=== PATIENT | female | born 1960 | race Caucasian/White ===

== ENCOUNTER 2019-10-31 08:23 | Outpatient (CLI) | payer MEDICAID, SELFPAY ==
--- NOTE | ~2019-10-31 | MM_ITS ---
EXAMINATION: MM screening mammo unilat RT HISTORY: Screening right mammogram, history of left mastectomy TECHNIQUE: Craniocaudal and mediolateral oblique 3-D tomosynthesis images were obtained and synthetic 2-D images were generated. CAD analysis was submitted and interpreted. COMPARISON: 10/28/2018, 10/15/2017, 04/27/2015 BREAST PARENCHYMAL COMPOSITION: There are scattered areas of fibroglandular density. FINDINGS: There is no evidence of suspicious mass, calcification, or architectural distortion to sugg est malignancy. There has been no suspicious interval change. IMPRESSION: 1. No mammographic evidence of malignancy. 2. Recommend routine screening mammography in one year. BI-RADS Category 1: Negative Reviewed, dictated and finalized at location A. KEET RAISER
== END 2019-10-31 08:24 | disposition home or self-care (01) ==
PROVIDERS: PCP Family Medicine; Visit Provider Obstetrics & Gynecology
DX: Z12.31 Encounter for screening mammogram for malignant neoplasm of breast (principal)
CPT/HCPCS: 77067

== ENCOUNTER 2019-12-05 17:30 | Outpatient (RCR) | payer MEDICAID, SELFPAY ==
--- NOTE | 2019-11-07 08:59 | PTOPEVAL ---
PHYSICAL THERAPY EVALUATION AND PLAN OF CARE Thank you for referring this patient to [facility]. Vianey will be seen 2x/week for 4 weeks for PT. Please review, sign, date and return this plan of care OMER. I agree with and certify that the following plan of care is medically necessary. Referring Physician Date Attending Provider: Trever Miller MD Evaluation Evaluation Information Problem Diagnosis right shoulder pain; Onset 02/2019 Subjective Information Vianey is here today with Query Text:As Reported By Patient/ chronic right shoulder pain. Family Reports pain starting in 2018. She participated in PT in 05/2019 that states went well while she was particpiating, but since stopping therapy she notes that she started to lose motion again. She reprots she feels as though she has strength, but ROM is what is limited. Reaching back and behind are her most difficulty and painful motions. States she sleeps well generally. Since ending therapy a few months ago, she will occasionally try to stretch the arm up the wall, but otherwise the other exercises have become too difficult. Vianey did get an injection from the physician. She is taking naproxen as prescribed by physician. Right Shoulder(s) Reported Pain Level 0 Pain Frequency Chronic,Intermittent Greatest Pain Intensity 7 Pain Relief Interventions Used By None Patient Upper Extremity Range of Motion Scapular/ Shoulder Range of Motion Right Shoulder Flexion - Active 137 Shoulder Abduction - Active 151 Shoulder Medial Rotation - Active L4 Query Text:Reach Behind the Back Shoulder Lateral Rotation - Active 55 Shoulder Lateral Rotation - Active T2 Query Text:Reach Behind the Head Upper Extremity Muscle Strength Testing Scapular/Shoulder Right Shoulder Flexion Strength 4+ Good + Shoulder Extension Strength 5 Normal Shoulder Abduction Strength 5 Normal Shoulder Medial Rotation Strength 5 Normal Shoulder Lateral Rotation Strength 5 Normal Muscle Length Testing Muscle Length Testing Upper Trapezius Muscle Length (R) Mild Tightness Should
--- NOTE | 2019-12-05 18:11 | PTOPEVAL ---
PHYSICAL THERAPY PLAN OF CARE UPDATE AND PROGRESS REPORT Thank you for referring this patient to [facility]. I recommend continuing PT with Vianey 1x/week for 2-3weeks. Please review, sign, date and return this plan of care OMER. I agree with and certify that the following plan of care is medically necessary. Referring Physician Date Attending Provider: Trever Miller MD Re-evaluation Diagnosis right shoulder pain; Onset 02/2019 Subjective Information Vianey reports today that she Query Text:As Reported By Patient/ feels like there is little Family progress lately - that there is one spot that won't give. Self Report Pain Assessment Right Shoulder(s) Reported Pain Level 0 Interventions Used By Clinicians Exercise,Joint Mobilization Pain Score Pain Score 0: Self Report Upper Extremity Range of Motion Scapular/ Shoulder Range of Motion Right Shoulder Flexion - Active 158 Shoulder Abduction - Active 163 Shoulder Medial Rotation - Active T6 Query Text:Reach Behind the Back Shoulder Lateral Rotation - Active 72 Shoulder Lateral Rotation - Active T2 Query Text:Reach Behind the Head Scapular/Shoulder Range of Motion Muscle Length Restriction Limitations Scapular/Shoulder Range of Motion comparing right external Comments rotation behind head: left the upper thoracic spine rotatoes to allow increased motion whereas on the right side the upper thoracic does not rotate to allow for increased movement Upper Extremity Muscle Strength Testing Scapular/Shoulder Right Shoulder Flexion Strength 5 Normal Shoulder Extension Strength 5 Normal Shoulder Abduction Strength 5 Normal Shoulder Medial Rotation Strength 5 Normal Shoulder Lateral Rotation Strength 5 Normal Muscle Length Testing Upper Trapezius Muscle Length (R) Mild Tightness Levaetor Scapulae Muscle Length (R) Mild Tightness Shoulder Internal Rotators Muscle Length (R) Mild Tightness Clinical Summary Vianey has participated in 4 weeks of physical therapy for right adhesive capsulitis. She presents today with continued mild restriction of right shoulder external rotation when reaching behind her head and internal rotation when reaching behind her back and with discomfort at end range elevation. I recommend
--- NOTE | 2019-12-21 14:26 | PCPTNOTE ---
Patient cancelled her re-evaluation due to COVID-19 precautions. She will be discharged at this time. We will be happy to work with her again in the future if needed.
--- NOTE | 2019-12-21 14:27 | PCPTNOTE ---
PHYSICAL THERAPY DISCHARGE REPORT Attending Provider: Trever Miller MD Patient:Vianey Levy Date of :1960 Vianey has not returned for any further treatments since 12/05/2019 due to COVID-19 precautions. She will be discharged from therapy at this time. Her last re-assessment was sent on 12/05/2019. Thank you for referring this patient to [facility]. Please review, sign, date and return this discharge summary OMER. I have been updated about the patient's current status and I agree with discharge from the above service at this time. Referring Physician Date
== END 2019-12-22 14:46 | disposition home or self-care (01) ==
LOC: ANHPT 17:30
PROVIDERS: PCP Family Medicine; Visit Provider Orthopaedic Surgery
DX: M75.01 Adhesive capsulitis of right shoulder (principal)
CPT/HCPCS: 97110; 97140; 97161

== ENCOUNTER 2020-11-19 09:22 | Outpatient (CLI) | payer MEDICAID, SELFPAY ==
--- NOTE | ~2020-11-19 | MM_ITS ---
EXAMINATION: MM screening katrin RT w yobany HISTORY: Screening right mammogram, history of left mastectomy TECHNIQUE: Craniocaudal and mediolateral oblique 3-D tomosynthesis images were obtained and synthetic 2-D images were generated. CAD analysis was submitted and interpreted. COMPARISON: 10/31/2019, 10/28/2018, 10/15/2017 BREAST PARENCHYMAL COMPOSITION: There are scattered areas of fibroglandular density. FINDINGS: There is no evidence of suspicious mass, calcification, or architectural distortion to sugg est malignancy. There has been no suspicious interval change. IMPRESSION: 1. No mammographic evidence of malignancy. 2. Recommend routine screening mammography in one year. BI-RADS Category 1: Negative Reviewed, dictated and finalized at location A. [employer]
== END 2020-11-19 09:23 | disposition home or self-care (01) ==
LOC: ANHIMG 09:26
PROVIDERS: PCP Family Medicine; Visit Provider Obstetrics & Gynecology
DX: Z12.31 Encounter for screening mammogram for malignant neoplasm of breast (principal)
CPT/HCPCS: 77063; 77067

== ENCOUNTER 2021-08-08 03:37 | Observation (INO) | payer MEDICAID, SELFPAY ==
[2021-08-08] VITALS (50 sets, daily range): BP systolic 127–183; BP diastolic 53–91; PULSE 71–100; RESP 13–20; TEMP 35.9–37.1; O2SAT 88–100; BMI 27.3
--- NOTE | ~2021-08-08 | CT_ITS ---
EXAMINATION: CTA chest PE protocol DATE: 08/08/2021 05:59 INDICATION: Chest pain. TECHNIQUE: Computed tomography angiography (CTA) of the chest was performed with 100 mL Omnipaque-350 intravenous contrast timed to evaluate the pulmonary arteries. Coronal maximum intensity projection 3D-reconstructions were created by the technologist. Automated exposure control and iterative reconst ruction technique were employed. The dose-length product was 323.34 mGy-cm. COMPARISON: Chest 2 views 08/08/2021 FINDINGS: There is mild scarring at the lung apices. There is mild atelectasis bilaterally. No pleura l effusion. The heart size is normal. No pericardial effusion. There is no pulmonary embolus. There a re cysts in the liver measuring up to 5.5 cm. There are gallstones in the gallbladder, which is parti ally visualized. There are changes of left mastectomy. A left breast implant is noted. There is mild thoracic spondylosis. IMPRESSION: 1. No pulmonary embolus. Reviewed, dictated and finalized at location A. LITY COORDINATOR IMPRESSION: 1. No pulmonary embolus.
--- NOTE | ~2021-08-08 | XR_ITS ---
EXAMINATION: XR chest 2V DATE: 08/08/2021 04:10 INDICATION: Substernal chest pressure. Nausea and vomiting. TECHNIQUE: Frontal and lateral views of the chest were obtained. COMPARISON: Chest CT 08/08/2021 FINDINGS: There is mild scarring at the lung apices. No pleural effusion or pneumothorax. The heart s ize is normal. A left breast implant is noted. IMPRESSION: 1. Mild scarring at the lung apices. Reviewed, dictated and finalized at location A. R [employer]
--- NOTE | ~2021-08-08 | US_ITS ---
US abdomen limited INDICATION: Evaluate for cholecystitis. PROCEDURE: Realtime right upper abdominal ultrasound. COMPARISON: No prior studies for comparison. FINDINGS: The pancreas is normal without focal mass or pancreatic ductal dilation. Liver echotexture is increased, consistent with fatty infiltration. There are cysts of the liver, largest measuring up to 5.9 cm. There is normal directional flow in the portal vein. There is mild gallbladder wall thickening measuring 3.2 mm. No gallstones or pericholecystic fluid. Common bile duct measures 6 mm. No sonographic Olsen's sign. IMPRESSION: 1: Mild gallbladder wall thickening. This could indicate interstitial edema, chronic liver disease or chronic cholecystitis. 2: Hepatic steatosis with liver cysts. Reviewed, dictated and finalized at location A. RSAL PRINT INSPECTOR IMPRESSION: 1: Mild gallbladder wall thickening. This could indicate interstitial edema, ch ronic liver disease or chronic cholecystitis. 2: Hepatic steatosis with liver cysts.
--- NOTE | 2021-08-08 03:41 | ECG_ITS ---
Measurements Intervals [place] Rate: 92 P: 58 SC: 163 QRS: 44 QRSD: 98 T: 17 QT: 292 QTc: 361 Interpretive Statements SINUS RHYTHM POSSIBLE LEFT ATRIAL ENLARGEMENT INCOMPLETE RIGHT BUNDLE BRANCH BLOCK BORDERLINE T WAVE ABNORMALITY- INFERIOR LEADS BORDERLINE ECG Electronically Signed On 08-08-2021 5:54:57 KILN HAND by Luigi Mcmullen D.O.
--- NOTE | 2021-08-08 03:59 | PC.NURSE ---
Pt to XY at this time
[2021-08-08] MEDS: ASPIRIN 81 MG CHEWABLE TABLET 324 MG PO (04:03)
[2021-08-08] MEDS: SODIUM CHLORIDE 0.9% IV 1,000 ML 999 ML IV CONT (04:04)
[2021-08-08] MEDS: NITROGLYCERIN SL 0.4 MG TABLET SUBLINGUAL (04:05)
--- NOTE | 2021-08-08 04:06 | PC.NURSE ---
1st dose SL Nitro given. Pt rates chest pain/pressure 9/10. BP 172/90
--- NOTE | 2021-08-08 04:10 | ED.GENADULT ---
HPI - General Adult General Chief complaint: Chest Pain <Fredrick Elliott MD - Last Filed: 08/08/21 06:53> Stated complaint: chest pain radiating to back <Fredrick Elliott MD - Last Filed: 08/08/21 06:53> Time Seen by Provider: 08/08/21 03:46 <Fredrick Elliott MD - Last Filed: 08/08/21 06:53> History of Present Illness HPI narrative: Patient 61-year-old female presents the emergency department with chief complaint of chest pain. Patient reports that for some time she has been having intermittent episodes of discomfort in the lower chest. Patient reports the pain radiates to her back reports its not improved by anything and reports that normally it spontaneously resolved patient states normally has lasted just a few minutes to last up to a few hours patient states this evening started around 9 PM and is pretty well constant since then patient reports she is not followed up with her provider about this has not had a stress test patient reports her only past medical history significant for breast cancer which she is on oral agents for her at this time <Fredrick Elliott MD - Last Filed: 08/08/21 06:53> Related Data Home medications: Home Medications Medication Instructions Recorded Confirmed tamoxifen 10 mg tablet 10 mg PO BID 08/31/19 calcium carbonate 600 mg calcium 600 mg PO DAILY 10/26/19 (1,500 mg) tablet cholecalciferol (vitamin D3) 75 3,000 unit PO DAILY 10/26/19 mcg (3,000 unit) tablet <Fredrick Elliott MD - Last Filed: 08/08/21 06:53> Allergies/adverse reactions: Allergies Allergy/AdvReac Type Severity Reaction Status Date / Time azithromycin Allergy Unknown Skin Verified 08/08/21 03:53 Reaction ciprofloxacin Allergy Unknown unknown Verified 08/08/21 03:53 clindamycin Allergy Unknown unknown Verified 08/08/21 03:53 codeine Allergy Unknown Skin Verified 08/08/21 03:53 Reaction penicillin G Allergy Unknown swelling Verified 08/08/21 03:53 Penicillins Allergy Unknown swelling- Verified 08/08/21 03:53 face-hands Sulfa (Sulfonamide Allergy Unknown Skin Verified 08/08/21 03:53 Antibiotics) Reaction sulfamethizole Allergy Unknown Skin Verified 08/08/21 03:53 Reaction sulfamethoxazole Allergy Unknown Unknown Verified 08/08/21 03:53 [From Bactrim] sumatriptan Allergy Unknown Skin Verified 08/08/21 03:53 Reaction trimethoprim Allergy Unknown RASH Verified 10/26/19 08:30 vancomycin Allergy Unknown Skin Verified 10/26/19 08:30 Reaction VANCOMYCIN HCL Allergy Severe RASH AND Uncoded 08/13/18 11:41 RED FACE <Fredrick Elliott MD - Last Filed: 08/08/21 06:53> Review of Systems Review of Systems: A 10 system review of systems was completed on the patient and is negative except for what is stated in the HPI. Nursing and ancillary documentation was reviewed. <Fredrick Elliott MD - Last Filed: 08/08/21 06:53> [facility] Past Medical History Medical History: Medical History Breast cancer Osteopenia <Fredrick Elliott MD - Last Filed: 08/08/21 06:53> Surgical History Surgical History: Surgical History History of hysterectomy 07/2018 Dr. 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
[2021-08-08 04:13] LABS: Basophils Absolute Auto 0.1 K/mm3 (0.0-0.1); Basophils Percent Auto 0.4 % (0.2-1.2); Hematocrit 38.7 % (37.0-47.0); Hemoglobin 12.7 g/dL (12.0-15.0); Immature Granulocyte Absolute 0.07 K/mm3 (0.00-0.031); Immature Granulocyte Percent A 0.5 % (0-0.5); Lymphocytes Percent Auto 10.4 % (18.3-44.2); Mean Corpuscular HGB Conc 32.8 g/dl (32-36); Mean Corpuscular Volume 94.4 fl (80-100); Mean Platelet Volume 9.6 fl (7.4-10.4); Monocytes Absolute Auto 0.6 K/mm3 (0.1-0.6); Monocytes Percent Auto 4.4 % (2.6-8.5); Neutrophils Absolute Auto 11.3 K/mm3 (1.3-6.7); Neutrophils Percent Auto 84.3 % (45.5-73.1); Platelet Count Result 226 k/mm3 (150-375); White Blood Count 13.4 K/mm3 (4.5-10.0)
--- NOTE | 2021-08-08 04:13 | PC.NURSE ---
2nd dose of SL Nitro. Pt rates chest pain/pressure /. BP 146/82.
--- NOTE | 2021-08-08 04:18 | PC.NURSE ---
3rd dose SL Nitro given. Pt rates pain 06/07. BP 145/87.
[2021-08-08 04:25] LABS: Alanine Aminotransferase 21 U/L (4-35); Albumin Level 4.5 g/dL (3.5-5.1); Alkaline Phosphatase 54 U/L (38-126); Anion Gap 10 mmol/L (8-16); Aspartate Amino Transferase 29 U/L (14-36); Bilirubin,Total 0.3 mg/dL (0.2-1.3); Blood Urea Nitrogen 17 mg/dL (7-17); Calcium 9.6 mg/dL (8.4-10.2); Carbon Dioxide 26 mmol/L (22-30); Chloride 105 mmol/L (98-107); Estimated CRCL calculation 59 ml/min; Estimated Glomerular Filt Rate > 60; Glucose 139 mg/dL (65-110); Lipase 149 U/L (23-300); Potassium 3.9 mmol/L (3.4-5.0); Sodium 141 mmol/L (137-145)
[2021-08-08] MEDS: MORPHINE SULFATE (*CRX) 4 MG/ML INJ IV PUSH ×3 (04:31→17:06)
[2021-08-08 04:37] LABS: Troponin I < 0.012 ng/mL (0.000-0.034)
[2021-08-08 04:41] LABS: INR 0.9; Prothrombin Time 12.1 Seconds (11.1-14.7)
[2021-08-08 04:55] LABS: D Dimer 0.49 ug/mL (<0.48)
--- NOTE | 2021-08-08 05:49 | PC.NURSE ---
Pt to CT via stretcher at this time.
[2021-08-08] MEDS: BELLADONNA ALK/PHENOB ELIX 10 ML, MAG HYDROX/ALUMINUM HYD/SIMETH 30 ML, LIDOCAINE HCL 2... PO (06:10)
[2021-08-08 07:59] LABS: Troponin I < 0.012 ng/mL (0.000-0.034)
[2021-08-08] MEDS: DICYCLOMINE HCL 10 MG CAPSULE 20 MG PO (09:33)
[2021-08-08] MEDS: LORazepam INJ (*CRX) 2 MG/ML VIAL 1 MG IV PUSH (09:34)
[2021-08-08 10:22] LABS: Troponin I < 0.012 ng/mL (0.000-0.034)
--- NOTE | 2021-08-08 11:25 | PC.NURSE ---
pt to ultrasound via stretcher. report to imu
--- NOTE | 2021-08-08 11:32 | PC.NURSE ---
This patient, Vianey Levy, was admitted to IMU Room 209-. Patient/family oriented to hospital policies and general routines including ID bracelet, bed and alarms, visiting hours, pain management, procedures, bathroom and other care routines, personal items, smoking policy, room service/diet, and visiting hours. Information on how to activate the Rapid Response Team has been discussed. Patient/Family are encouraged to report perceived risks to care and to ask questions if they do not understand what they are told or what they should do.
[2021-08-08] MEDS: SODIUM CHLORIDE 0.9% IV 1,000 ML 125 ML IV CONT (12:00)
--- NOTE | 2021-08-08 13:00 | PM.IMHP ---
H&P: HPI History of Present Illness Date/Time: 08/08/21 13:00 Chief Complaint: Chest pain. Narrative: This is a 61-year-old female with history of breast cancer who presented to the emergency department in the dry plasterer hours for evaluation of chest pain. Last evening at around 21:00 she was hungry for a snack and she apparently had some chips and orange juice. About an hour thereafter she developed pain in the low chest/epigastric region that she describes as ?someone is pushing me with their fist.? The pain radiates through to the back and is associated with nausea and several episodes of emesis. She felt perhaps a bit short of breath with that as well however it seems as though taking in a deep breath seemed to make the discomfort worse. The patient has had similar episodes in the past dating back to at least December 2020 if not longer, and she reports that they typically occur during the middle of the night and resolve without intervention within a few hours. She had 2 such episodes in May. She does not necessarily notice a correlation with regards to food. Chest x-ray and chest CTA done on arrival to the emergency department were both unremarkable. A subsequent right upper quadrant ultrasound demonstrated mild gallbladder wall thickening which could indicate interstitial edema, chronic liver disease, or chronic cholecystitis as well as hepatic steatosis with liver cysts. She denies personal and family history of coronary artery disease. She has not had exertional chest pain or shortness of breath. No known history of gallbladder disease. No history of pancreatitis, GERD, or peptic ulcers. Review of Systems Review of Systems: Twelve systems were reviewed. No fever, chills, or sweats. No recent cold or flu symptoms. She denies exertional chest pain, pleuritic pain, and shortness of breath. No orthopnea, PND, or lower extremity edema. No diarrhea or constipation. She had a normal colonoscopy done about 9 years ago and is due for a routine colonoscopy next year. She has not noticed any blood or mucus in the stool. Except as documented, all other systems were reviewed and are negative. [facility] Past Medical History Medical History (Updated 08/08/21 @ 14:21 by Judith Skinner PA-C) Cancer of left breast Status post mastectomy Osteopenia Surgical History Surgical History (Updated 08/08/21 @ 13:13 by Judith Skinner PA-C) History of hysterectomy (07/2018) History of left mastectomy (04/2011) Status post LASIK surgery (2018) Family History Family History Sibling Diabetes mellitus Hypertension Other Asthma Social History Social History (Updated 08/08/21 @ 14:43 by Judith Skinner PA-C) Social History: Surrogate decision maker: Quinn Levy, spouse. Code status: Full code. Smoking status: Never smoker Second hand tobacco smoke exposure: Yes Alcohol intake: never Substance use: never Substance use type: does not use Additional living arrangements comments: The patient lives in [place] with her . 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 Spiritual care concerns: Yes (Islam) Agree to blood products: No Meds Home Medications and Allergies Home Medications Medication Instructions Recorded Confirmed Type calcium carbonate 600 mg calcium 600 mg PO DAILY 10/26/19 08/08/21 History (1,500 mg) tablet cholecalciferol (vitamin D3) 50 mcg PO DAILY 08/08/21 08/08/21 History [Vitamin D3] Allergies Allergy/AdvReac Type Severity Reaction Status Date / Time azithromycin Allergy Unknown Skin Verified 08/08/21 03:53 Reaction ciprofloxacin Allergy Unknown Rash Verified 08/08/21 11:46 clindamycin Allergy Unknown Rash Verified 08/08/21 11:46 codeine Allergy Unknown Skin Verified 08/08/21 03:53 Reaction penicillin G Allergy Unknown swelling Verif
[2021-08-08 15:37] LABS: Troponin I < 0.012 ng/mL (0.000-0.034)
--- NOTE | 2021-08-08 15:53 | PM.CNGS ---
Assessment and Plan Assessment and plan (1) Cholecystitis: Code(s): K81.9 - Cholecystitis, unspecified Status: Acute Assessment and Plan: CTA and ultrasound reviewed and discussed with the patient in detail. She has evidence of cholecystitis and cholelithiasis. This appears to be the likely cause for her epigastric/substernal chest pain. Her white blood cell count is elevated and she is continuing to have epigastric abdominal pain. I discussed the disease process and treatment options at this point. We discussed trying to treat this conservatively and making lifestyle changes versus proceeding with surgery. I briefly discussed the procedure, risks, benefits, expected outcomes, and expected recovery with the patient. All questions were answered. She agrees to proceed with surgery. We will plan on adding her onto the surgery schedule tomorrow for a laparoscopic cholecystectomy, possible open, by Dr. Burr under general anesthesia. Will allow clear liquids tonight and make her NPO after midnight. Antibiotics are limited given her multiple allergies. Will plan on giving pre-operative antibiotics tomorrow before surgery. Thank you for allowing us to see the patient in consultation and we will continue to follow along with you. (2) Epigastric pain: Code(s): R10.13 - Epigastric pain Status: Acute (3) Patient is Anabaptism: Code(s): Z78.9 - Other specified health status Status: Acute Assessment and Plan: I verified with the patient that she is Anabaptism and refuses blood products. Additional Plan I have discussed the patient's case and plan of care with Dr. Burr. History of Present Illness Consult details Consult date: 08/08/21 Reason for consult: other (Epigastric pain with imaging findings of cholelithiasis and possible cholecystitis) Requesting physician: Judith Skinner PA-C Narrative: This is a 61-year-old female with a history of breast cancer in 2010, who presented to the ER for evaluation of chest pain. She reports having a few episodes in the past, about 3-4, that were similar to this episode, but more mild in nature. The initial episode was in December of 2020. The onset of pain with each episode has been during the night, and was accompanied by dry heaving. She cannot recall if there was any association with food or eating. She reports last night she had eaten chilli with cheese for dinner and felt that she started having some discomfort in her mid lower chest/epigastric area around 9:30 pm. She then ate some chips and drank orange juice. About an hour after, she began having worsening pain. The pain was more severe than previous episodes and was radiating to her mid back. She developed nausea and had two episodes of vomiting. Due to persistent pain, she decided to come to the ER for further evaluation. Labs in the ER showed a WBC count of 13,400, normal LFTs, and normal troponin x 3. Barely elevated D-dimer. Chest CTA was negative for pulmonary embolism, but does mention partial visualization of the gallbladder with cholelithiasis noted. Chest x-ray showed mild scarring at the lung apices but no acute cardiopulmonary process. RUQ ultrasound was then ordered and showed mild gallbladder wall thickening without visible cholelithiasis or other findings consistent with cholecystitis. Also noted was hepatic steatosis and liver cysts. She has been admitted to the Hospitalist and is currently NPO. She has had nitroglycerin in the ER without relief of her pain. She has had Morphine, which she felt helped her pain. She reports that the pain is starting to worsen again slowly. She is currently rating her pain as a 7/10 and a pressure type of pain. Our service has been consulted for the abnormalities of the gallbladder on imaging with epigastric pain. She is now seen on the medical floor. Her nausea has improved. Her bowels have been moving normally for her with her last BM yesterday. No other c
--- NOTE | 2021-08-08 16:06 | PM.CNCAR ---
Assessment and Plan Assessment and plan (1) Atypical chest pain: Code(s): R07.89 - Other chest pain Status: Acute Assessment and Plan: Patient has had more than 12 hours of continuous chest discomfort with negative troponins and a normal EKG, so this does not appear to be an acute cardiac ischemic problem/ACS syndrome. No evidence of aortic problems, PE or pericarditis. She does have some epigastric tenderness I suspect this is GI, probably related to her gallstones. My impression is this is noncardiac chest pain and no further cardiac evaluation is needed. Thank you for requesting this consultation. We will sign off but please call if we can be of further assistance. History of Present Illness History of Present Illness Consult date/time: 08/08/21 16:06 Requesting physician: Lashon Samuels MD Consult reason: chest pain Reason For Visit: chest pain Narrative: Vianey Levy is a 61-year-old female whom we are asked to see at the request of Dr. Samuels and the hospitalist for advice and opinion regarding her chest discomfort in consultation. Ms. Levy has had episodes of chest discomfort over the past year at rest, which would solve after few minutes. Last night she started having some chest discomfort around 10:00 p.m.. which became more intense in she asked her to bring her to the emergency room. She describes this as a pressure in the lower sternal area. There is no associated nausea vomiting, shortness of breath or diaphoresis. No radiation. It is nonpleuritic and nonpositional. It did not respond to nitroglycerin but improved a little with morphine. She still having some discomfort. She is also being evaluated for her gallstones. There is no history of hypertension, diabetes, hyperlipidemia, smoking or any family history of heart disease. She can exert with no particular problems. Review of Systems Constitutional: Constitutional: Reports fatigue and Denies weakness Eyes: Eyes: Reports no additional eye complaints ENT: Denies epistaxis Cardiovascular: Cardiovascular: Reports chest pain, Denies pedal edema, Denies leg edema, Denies lightheadedness and Denies palpitations Respiratory: Respiratory: Denies dyspnea and Denies dyspnea on exertion Gastrointestinal: Gastrointestinal: Reports abdominal pain Genitourinary: Genitourinary: Denies hematuria Musculoskeletal: Musculoskeletal: Reports no additional musculoskeletal complaints Integumentary/Breasts: Skin/Breast: Denies rash Neurologic: Reports system reviewed and no additional complaints, except as documented Psychiatric: Psychiatric: Reports no additional psychiatric complaints [facility] Past Medical History Medical History Cancer of left breast Status post left mastectomy Osteopenia Surgical History Surgical History History of hysterectomy (07/2018) Laparoscopic-assisted vaginal hysterectomy with bilateral salpingo-oophorectomy History of left mastectomy (04/2011) with implant Status post LASIK surgery (2017) Family History Family History Sibling Diabetes mellitus Hypertension Father Gallbladder disease Other Asthma Social History Social History Social History: Surrogate decision maker: Quinn Levy, spouse. Code status: Full code. Smoking status: Never smoker Second hand tobacco smoke exposure: Yes Alcohol intake: never Substance use: never Substance use type: does not use Additional living arrangements comments: The patient lives in [place] with her . 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
[2021-08-08 17:00] LABS: Troponin I < 0.012 ng/mL (0.000-0.034)
--- NOTE | 2021-08-08 20:51 | PC.NURSE ---
PATIENT TRANSFERRED TO [address] [place] [address] AT 2051. REPORT GIVEN TO RONNI LLAMAS.
[2021-08-08] MEDS: SODIUM CHLORIDE 0.9% IV 1,000 ML 80 ML IV CONT (21:03)
--- NOTE | 2021-08-08 21:57 | PC.NURSE ---
2054 recieved patient from IMU per wheelchair. Oriented to surroundings and call light in reach.
[2021-08-09] VITALS (10 sets, daily range): BP systolic 132–165; BP diastolic 68–87; PULSE 73–93; RESP 14–20; TEMP 36.3–37.2; O2SAT 95–100
[2021-08-09 05:51] LABS: Hematocrit 32.2 % (37.0-47.0); Hemoglobin 10.6 g/dL (12.0-15.0); Mean Corpuscular HGB Conc 32.9 g/dl (32-36); Mean Corpuscular Hemoglobin 30.9 pg (26-34); Mean Corpuscular Volume 93.9 fl (80-100); Mean Platelet Volume 9.8 fl (7.4-10.4); Platelet Count Result 195 k/mm3 (150-375); Red Blood Count 3.43 M/mm3 (4.2-5.4); Red Cell Distribution Width 12.8 % (11.5-14.5)
[2021-08-09 05:58] LABS: Alanine Aminotransferase 17 U/L (4-35); Albumin Level 3.2 g/dL (3.5-5.1); Alkaline Phosphatase 42 U/L (38-126); Anion Gap 5 mmol/L (8-16); Aspartate Amino Transferase 22 U/L (14-36); Bilirubin,Total 0.4 mg/dL (0.2-1.3); Blood Urea Nitrogen 9 mg/dL (7-17); Calcium 8.2 mg/dL (8.4-10.2); Carbon Dioxide 28 mmol/L (22-30); Chloride 105 mmol/L (98-107); Cholesterol 142 mg/dL (0-200); Estimated CRCL calculation 66 ml/min; Estimated Glomerular Filt Rate > 60; Glucose 105 mg/dL (65-110); HDL Direct 45 mg/dL; Magnesium 1.7 mg/dL (1.6-2.3); Potassium 3.6 mmol/L (3.4-5.0); Sodium 138 mmol/L (137-145); Triglycerides 152 mg/dL (<150)
[2021-08-09 06:06] LABS: LDL Cholesterol Direct 71 mg/dL
[2021-08-09] MEDS: MORPHINE SULFATE (*CRX) 4 MG/ML INJ IV PUSH (07:32)
[2021-08-09] MEDS: CHLORHEXIDINE GLUCONATE 4% SOL 120 ML BTL 1 APPLIC TOPICAL (08:40)
[2021-08-09] MEDS: PANTOPRAZOLE SODIUM IV 40 MG VIAL IV PUSH (08:40)
--- NOTE | 2021-08-09 11:48 | PM.IMPN ---
Progress Note: A&P Assessment and Plan (1) Cholecystitis: Code(s): K81.9 - Cholecystitis, unspecified Status: Acute Assessment and Plan: RUQ ultrasound demonstrates mild gallbladder wall thickening. CTA showed cholelithiasis. Appreciate general surgery consultation Planning for laparoscopic cholecystectomy this afternoon. Continue with IV Ancef perioperatively, noting her multiple antibiotic allergies She is NPO for surgery. Advanced diet per General surgery following cholecystectomy Analgesics and antiemetics available as needed (2) Epigastric pain: Code(s): R10.13 - Epigastric pain Status: Acute Assessment and Plan: The patient came in for evaluation of chest pain but it was actually more epigastric/low chest pain. Symptoms felt to be secondary to cholecystitis and unlikely to be cardiac in etiology. She has been evaluated by fisher clam, Dr. Alonzo, who indicates this is noncardiac and no further cardiac evaluation is required. She has no significant risk factors and denies exertional chest pain and shortness of breath. (3) Elevated blood pressure reading: Code(s): R03.0 - Elevated blood-pressure reading, without diagnosis of hypertension Status: Acute Assessment and Plan: Blood pressures were reviewed and they were running high on arrival to the ED, likely due to pain and they have been improving with better pain control. Last BP 132/68. Continue to monitor blood pressure trends. (4) Patient is Holiness: Code(s): Z78.9 - Other specified health status Status: Acute Assessment and Plan: She confirms her refusal of blood products. Subjective Date/time seen: 08/09/21 11:48 Interval history: Date of service: 08/09/2021 Vianey Levy is a pleasant 61-year-old female with history of left breast cancer s/p mastectomy who is seen in follow-up for cholecystitis. She is feeling well today. She denies any abdominal pain at this time. Also denies epigastric pain no chest pain. She does complain of a headache surrounding the crown of her head that has been present since last night. The pain medication has helped improved this somewhat. No visual changes. She denies nausea, vomiting, fevers, or chills. Denies shortness of breath or cough. She has been NPO with plans for cholecystectomy today. She has not had a bowel movement since her hospitalization. Denies any recent diarrhea. No urinary symptoms. No difficulty with ambulation. No dizziness, lightheadedness, or weakness. Review of Systems Review of Systems: All systems reviewed & are unremarkable except as noted in HPI and below Exam Narrative: Ms. Levy is a well-nourished, well-appearing 61-year-old female who is lying supine in bed. She appears comfortable and is in NARD. Neuro: awake, alert and oriented x4, speech clear, no focal neuro deficits noted HEENMT: normocephalic, atraumatic, EOMI, sclerae anicteric, moist oral mucosa Neck: supple, no lymphadenopathy Respiratory: clear to auscultation bilaterally, nonlabored breathing Cardio: regular rate, regular rhythm with S1-S2 Abdomen: nondistended, normoactive bowel sounds, soft, nontender to palpation in RUQ or epigastric region Extremities: no edema, erythema, or tenderness to palpation, DP pulses 2+ bilaterally Skin: no rashes or lesions, warm and dry Psych: appropriate mood and affect, judgment and insight intact Objective Data Vital Signs Vital Signs: Vital Signs - 24 hr 08/08/21 12:00 08/08/21 14:00 08/08/21 16:00 Temperature 98.6 F Pulse Rate 83 84 78 Respiratory Rate 16 Blood Pressure 143/80 H Pulse Oximetry 100 08/08/21 18:00 08/08/21 20:00 08/08/21 21:00 Temperature 98.4 F 96.7 F L Pulse Rate 93 85 85 Respiratory Rate 16 20 Blood Pressure 127/68 154/74 H Pulse Oximetry 97 99 08/08/21 23:49 08/09/21 03:55 Temperature 98.7 F 98.1 F Pulse Rate 76 79 Respirat
--- NOTE | 2021-08-09 12:09 | WPDHPUPDATE1 ---
History and Physical Update Update Date/Time: 08/09/21 12:09 History and Physical has been reviewed, including an updated exam of the patient. There are NO changes in the patient's condition. Risks, benefits, and alternatives have been discussed and questions answered. Patient agrees to proceed with procedure.
--- NOTE | 2021-08-09 12:26 | PC.NURSE ---
To surgery per stretcher. IV saline locked 22 right forearm. Report given to MURIEL Avitia.
--- NOTE | 2021-08-09 12:42 | WPDANESEPPF ---
Anes - Initial Pre Proc Eval Procedure: Operation Date: 08/09/21 16:00 Proposed Procedures p Laparoscopic Cholecystectomy,Possible Open - Oneal Burr DO Date/Time: 08/09/21 12:42 Surgeon: Kiara Mcfarland PA-C Pre Op Diagnosis: chest pain Patient Data Age: 61 Gender: F Height: 1.73 m Weight: 83.3 kg Last Vital Signs Temp 36.7 C 08/09/21 03:55 Pulse 79 08/09/21 03:55 Resp 18 08/09/21 03:55 BP 132/68 08/09/21 03:55 Pulse Ox 97 08/09/21 03:55 Allergies Allergy/AdvReac Type Severity Reaction Status Date / Time azithromycin Allergy Unknown Skin Verified 08/08/21 03:53 Reaction ciprofloxacin Allergy Unknown Rash Verified 08/08/21 11:46 clindamycin Allergy Unknown Rash Verified 08/08/21 11:46 codeine Allergy Unknown Skin Verified 08/08/21 03:53 Reaction penicillin G Allergy Unknown swelling Verified 08/08/21 03:53 Penicillins Allergy Unknown swelling- Verified 08/08/21 03:53 face-hands Sulfa (Sulfonamide Allergy Unknown Skin Verified 08/08/21 03:53 Antibiotics) Reaction sulfamethizole Allergy Unknown Skin Verified 08/08/21 03:53 Reaction sulfamethoxazole Allergy Unknown Rash Verified 08/08/21 11:46 [From Bactrim] sumatriptan Allergy Unknown Skin Verified 08/08/21 03:53 Reaction trimethoprim Allergy Unknown RASH Verified 08/08/21 11:46 vancomycin Allergy Unknown Skin Verified 08/08/21 11:46 Reaction VANCOMYCIN HCL Allergy Severe RASH AND Uncoded 08/08/21 11:46 RED FACE Home Medications Medication Instructions Recorded Confirmed Type calcium carbonate 600 mg calcium 600 mg PO DAILY 10/26/19 08/08/21 History (1,500 mg) tablet cholecalciferol (vitamin D3) 50 mcg PO DAILY 08/08/21 08/08/21 History [Vitamin D3] Laboratory Tests 08/08/21 08/08/21 08/09/21 15:07 16:28 05:23 WBC 10.0 K/mm3 K/mm3 (4.5-10.0) RBC 3.43 M/mm3 L M/mm3 (4.2-5.4) Hgb 10.6 g/dL L g/dL (12.0-15.0) Hct 32.2 % L % (37.0-47.0) MCV 93.9 fl fl (80-100) MCH 30.9 pg pg (26-34) MCHC 32.9 g/dl g/dl (32-36) RDW 12.8 % % (11.5-14.5) Plt Count 195 k/mm3 k/mm3 (150-375) MPV 9.8 fl fl (7.4-10.4) Sodium Potassium Chloride Carbon Dioxide Anion Gap BUN Creatinine Estim Creat Clear Calc Estimated GFR Glucose Calcium Magnesium Total Bilirubin AST ALT Alkaline Phosphatase Troponin I < 0.012 ng/mL ng/mL < 0.012 ng/mL ng/mL (0.000-0.034) (0.000-0.034) Total Protein Albumin Triglycerides Cholesterol LDL Cholesterol Direct HDL Direct TSH (Reflex) 08/09/21 08/09/21 05:23 05:23 WBC RBC Hgb Hct MCV MCH MCHC RDW Plt Count MPV Sodium 138 mmol/L mmol/L (137-145) Potassium 3.6 mmol/L mmol/L (3.4-5.0) Chloride 105 mmol/L mmol/L (98-107) Carbon Dioxide 28 mmol/L mmol/L (22-30) Anion Gap 5 mmol/L L mmol/L (8-16) BUN 9 mg/dL D mg/dL (7-17) Creatinine 0.90 mg/dL mg/dL (0.7-1.0) Estim Creat Clear Calc 66 ml/min ml/min Estimated GFR > 60 (59 - ) Glucose 105 mg/dL mg/dL (65-110) Calcium 8.2 mg/dL L mg/dL (8.4-10.2) Magnesium 1.7 mg/dL mg/dL (1.6-2.3) Total Bilirubin 0.4 mg/dL mg/dL (0.2-1.3) AST 22 U/L U/L (14-36) ALT 17 U/L U/L (4-35) Alkaline Phosphatase 42 U/L U/L (38-126) Troponin I Total Protein 6.0 g/dL L g/dL (6.3-8.2) Albumin 3.2 g/dL L g/dL (3.5-5.1) Triglycerides 152 mg/dL H mg/dL (<150) Mendy
[2021-08-09] MEDS: LACTATED RINGERS 1,000 ML 30 ML IV CONT ×2 (13:00→14:56)
[2021-08-09] MEDS: ceFAZolin 2 GM/D5W 50 ML 2 GM/50 ML BAG IVPB (13:51)
[2021-08-09] MEDS: BUPIVACAINE HCL 0.5% PF 30 ML VIAL INFILTRATE (14:49)
--- NOTE | 2021-08-09 14:53 | W.PM.PROC2 ---
Procedure Note - Detailed Date of Procedure 08/09/21 Pre-op Diagnosis Acute calculous cholecystitis Post-op Diagnosis same Procedure Performed Laparoscopic Cholecystectomy Surgeon Oneal Burr, DO Anesthesia general and local (0.5% bupivacaine) Indications This is a 61-year-old woman who presented to the emergency department 2 days ago with epigastric and substernal pain. Her symptoms began in the evening, several hours after eating chili for dinner. She had had a couple prior episodes like this in the past. She was admitted for further cardiac workup and treatment. Her cardiac workup showed no evidence of acute coronary syndrome. She then had a gallbladder ultrasound which showed evidence of cholelithiasis and gallbladder wall thickening. Discussions were made with the patient about treatment options and decision was made to proceed with laparoscopic cholecystectomy, possible open. Findings Laparoscopic cholecystectomy was performed. The gallbladder had some chronic gallbladder wall thickening and some acute induration and edema. The cystic duct appeared normal in size. There was a medium-sized gallstones stuck down at the neck of the gallbladder. A large hepatic cyst was also visible just medial to the gallbladder fossa. The gallbladder was removed and sent to the lab for pathology. Description of Procedure Procedure as well as risks, benefits, and alternatives were discussed with patient. Written consent was obtained and placed in chart prior to procedure. The patient was brought back to surgical suite. Patient was placed in supine position on operating table. Time-out was done to confirm patient and procedure. Patient was then intubated by the anesthesia department. Abdomen was prepped and draped in sterile fashion using chlorhexidine prep. 0.5% bupivacaine with epinephrine was infiltrated at each site of incision. A 5 millimeter incision was made near the umbilicus, and a 5 millimeter Optiview trocar was advanced through the abdominal layers under direct visualization. Once inside the abdominal cavity, carbon dioxide was insufflated to create a pneumoperitoneum. The camera was inserted and the abdomen was inspected. No immediate abnormalities were identified. The patient was placed in reverse Trendelenburg position and rotated slightly to the left. An 11 millimeter incision was made in the subxiphoid region, and an 11 millimeter trocar was inserted under direct visualization. Two 5 millimeter incisions were made in the right upper quadrant, and two 5 millimeter trocars were inserted under direct visualization. The gallbladder was identified and grasped at the fundus and retracted superiorly. It was then grasped at the infundibulum retracted laterally. Careful dissection around the neck of the gallbladder was performed using blunt dissection with a [place] grasper and hook electrocautery. The cystic duct was identified, and a window was created behind it. The cystic artery was also identified and a window was created behind it. The critical view of safety was identified, visualizing the cystic duct running directly into the neck of the gallbladder, and the cystic artery running directly into the wall of the gallbladder. A 5 millimeter clip data reviewer was then used to place 2 clips proximally and 1 clip distally on both the cystic duct and cystic artery. They were then both transected using endoscopic scissors. Once safely away from the alma hepatitis, the gallbladder was dissected free from the liver bed using hook electrocautery. Hemostasis was achieved along the way. The gallbladder was removed completely and then removed through the subxiphoid port. The liver bed was then inspected. Hemostasis appeared adequate, and our clips appeared secure. The area was gently irrigated with sterile saline. No other abnormalities were seen. The patient was flattened out in bed, and 1 final inspection was made around the abdominal cavity. The s
--- NOTE | 2021-08-09 15:55 | SUR.PHASEI ---
[id number] sbar faxed floor notified
--- NOTE | 2021-08-09 16:59 | PC.NURSE ---
Patient returned from surgery by maryanne. Report received from MURIEL Katz.
--- NOTE | 2021-08-09 18:20 | PC.NURSE ---
Patient returned from surgery at 1700. Communication in that the patient may be discharged after 1800 if able to tolerate low fat diet and able to ambulate in the halls. The cafeteria closes at 1730 so the patient was only able to try clear liquids for dinner. The hospitalist that has this patient has left for the day. The patient states she does not feel comfortable leaving so soon after surgery. Will keep the patient over night for pain control and to see if patient can tolerate diet in the morning. Will update hospitalist.
[2021-08-10 00:28] VITALS: BP 125/65; PULSE 80; RESP 14; TEMP 36.8; O2SAT 97
[2021-08-10 06:15] VITALS: BP 130/73; PULSE 75; RESP 14; TEMP 36.4; O2SAT 97
[2021-08-10 06:18] LABS: Hematocrit 33.5 % (37.0-47.0); Hemoglobin 11.1 g/dL (12.0-15.0); Mean Corpuscular HGB Conc 33.1 g/dl (32-36); Mean Corpuscular Hemoglobin 31.7 pg (26-34); Mean Corpuscular Volume 95.7 fl (80-100); Mean Platelet Volume 10.1 fl (7.4-10.4); Platelet Count Result 201 k/mm3 (150-375); Red Cell Distribution Width 12.7 % (11.5-14.5); White Blood Count 10.6 K/mm3 (4.5-10.0)
[2021-08-10 06:37] LABS: Alanine Aminotransferase 23 U/L (4-35); Albumin Level 3.5 g/dL (3.5-5.1); Alkaline Phosphatase 46 U/L (38-126); Anion Gap 7 mmol/L (8-16); Aspartate Amino Transferase 27 U/L (14-36); Bilirubin,Total 0.3 mg/dL (0.2-1.3); Blood Urea Nitrogen 9 mg/dL (7-17); Calcium 8.7 mg/dL (8.4-10.2); Carbon Dioxide 28 mmol/L (22-30); Chloride 104 mmol/L (98-107); Estimated CRCL calculation 66 ml/min; Estimated Glomerular Filt Rate > 60; Glucose 117 mg/dL (65-110); Potassium 3.8 mmol/L (3.4-5.0); Sodium 139 mmol/L (137-145)
--- NOTE | 2021-08-10 09:24 | PM.PNGS ---
Progress Note: A&P Assessment and Plan (1) Cholecystitis: Onset Date: ~07/2021 Code(s): K81.9 - Cholecystitis, unspecified Status: Acute Assessment and Plan: This is the main reason that we saw the patient. She is doing well postop day # 1. Tolerating her diet. She got back to her room late enough last night that she could not get a diet from the cafeteria and was afraid about going home without trying something. Therefore, this morning she did try a full liquid diet without difficulties. Okay from surgical standpoint to discharge today. (2) Abdominal pain: Onset Date: ~07/2021 Code(s): R10.9 - Unspecified abdominal pain Status: Acute Assessment and Plan: Pretty much resolved status post laparoscopic cholecystectomy Time Spent With Patient Time with patient: less than 15 minutes Subjective Subjective Date/Time Seen: 08/10/21 09:24 Post Op day: 1 ( feeling okay postop day 1 s/p lap doris) Patient reports: no new complaints, flatus and afebrile Interval history: patient is sitting up in bed when I entered the room. She is tolerating a full liquid breakfast this morning. Does not complain of any nausea. Abdominal pain is minimal and would only want to use Tylenol. Review of Systems Review of Systems: Does have some posterior right shoulder pain which I explained probably is related to the CO2 gas from laparoscopy and will resolve. All systems reviewed & are unremarkable except as noted in HPI and below Constitutional: Constitutional: Reports as per HPI, Denies chills and Denies fever(s) Cardiovascular: Cardiovascular: Denies chest pain and Denies dyspnea Respiratory: Respiratory: Reports no additional respiratory complaints and Denies dyspnea Gastrointestinal: Gastrointestinal: Reports as per HPI and Denies bloating Musculoskeletal: Musculoskeletal: Reports no additional musculoskeletal complaints Neurologic: Denies memory loss Psychiatric: Psychiatric: Denies anxiety and Denies memory loss Exam Const: General: cooperative, comfortable, alert and awake Orientation/consciousness: patient oriented x3 HENMT: Head: normal to inspection Mouth: Yes moist mucous membranes Eyes: Sclera: sclerae normal Pupils: Equal, round and reactive pupils present Neck: Neck: normal visual inspection and no JVD Chest: Chest palpation & inspection: normal inspection of the chest Resp: Effort & Inspection: normal respiratory effort Auscultation: clear to auscultation bilaterally Cardio: Jugular venous distension: no JVD Rate: regular rate GI: Inspection: normal to inspection and incision ( Clean and dry with surgical glue in place.) : OB/external & speculum: Deferred OB/external & speculum exam Neuro: General: patient oriented x3 Cranial nerves: Yes Equal, round and reactive pupils present Objective Data Vital Signs Vital Signs: Vital Signs - 24 hr 08/09/21 12:45 08/09/21 15:00 08/09/21 15:15 Temperature 37.2 C 36.3 C L Pulse Rate 93 78 74 Respiratory Rate 16 14 16 Blood Pressure 165/87 H 134/74 134/70 Pulse Oximetry 99 100 100 08/09/21 15:30 08/09/21 15:45 08/09/21 16:00 Temperature Pulse Rate 75 79 76 Respiratory Rate 20 16 16 Blood Pressure 135/76 142/80 H 139/77 Pulse Oximetry 100 96 96 08/09/21 16:15 08/09/21 16:30 08/09/21 21:43 Temperature 36.4 C Pulse Rate 73 83 85 Respiratory Rate 14 20 14 Blood Pressure 138/80 134/85 132/68 Pulse Oximetry 95 95 96 08/10/21 00:28 08/10/21 06:15 Temperature 36.8 C 36.4 C L Pulse Rate 80 75 Respiratory Rate 14 14 Blood Pressure 125/65 130/73 Pulse Oximetry 97 97 Intake/Output Intake/Output: Intake & Output 08/07/21 08/08/21 08/09/21 08/10/21 23:59 23:59 23:59 23:59 Intake Total 2360 2650 500 Output Total 800 Balance 2360 1850 500 Meds/Results Medications: Active Medications Generic Name Dose Route Start Last Admin Trade Name Freq PRN Reason Stop Dose Admin
--- NOTE | 2021-08-10 09:35 | PM.DS ---
DS: Admitting Diagnosis Discharge Date 08/10/2021 Admitting Diagnosis Epigastric pain DS: Discharge Diagnosis Discharge Diagnosis (1) Cholecystitis: Onset Date: ~07/2021 Code(s): K81.9 - Cholecystitis, unspecified Status: Acute Assessment and Plan: RUQ ultrasound demonstrated mild gallbladder wall thickening. CTA showed cholelithiasis. She was seen in consultation by General surgery. Underwent laparoscopic cholecystectomy on 08/09/2021. She tolerated the procedure well and her pain was well controlled. She was able to tolerate a low-fat diet. She will follow-up with her surgeon in 2 weeks. (2) Epigastric pain: Code(s): R10.13 - Epigastric pain Status: Acute Assessment and Plan: The patient came in for evaluation of chest pain but it was actually more epigastric/low chest pain. Symptoms felt to be secondary to cholecystitis and unlikely to be cardiac in etiology. She was evaluated by heat treating operator, Dr. Alonzo, who indicated this is noncardiac and no further cardiac evaluation is required. She has no significant risk factors and denies exertional chest pain and shortness of breath. (3) Elevated blood pressure reading: Code(s): R03.0 - Elevated blood-pressure reading, without diagnosis of hypertension Status: Acute Assessment and Plan: Blood pressures were reviewed and they were running high on arrival to the ED, likely due to pain and did with better pain control. (4) Patient is Zoroastrianism: Code(s): Z78.9 - Other specified health status Status: Acute Assessment and Plan: She confirms her refusal of blood products. DS: Summary Hospital Course Hospital Course: Date of admission: 08/08/2021 Date of discharge: 08/10/2021 Vianey Levy is a pleasant 61-year-old female with history of left breast cancer s/p mastectomy who presented to the emergency department on 08/08/2021 with complaints of low chest pain/epigastric pain. On presentation to the emergency department, her blood pressure was slightly elevated with additional vital signs stable, white blood cell count [id number], additional CBC and BMP unremarkable, troponin negative, LFTs within normal limits, CTA negative for PE, and CXR with mild scarring of lung apices. She was admitted to the hospitalist service for further evaluation and management was seen in consultation by General surgery. She underwent laparoscopic cholecystectomy and tolerated her procedure well. Please see above for further details. She is able to tolerate a low-fat diet and felt significantly improved. She requested discharge home. Given her overall improvement, she was determined to no longer require inpatient care and was felt to be stable for discharge. We discussed worrisome signs and symptoms for which to return and she was educated on her medications. She was discharged in hemodynamically stable condition on 08/10/2021. Status at Discharge Functional status at discharge: independent ambulation Overall status at discharge: patient is progressing back to baseline Time Spent with Patient Time attestation: Total time spent providing and/or coordinating discharge services: 45 minutes Time spent: Greater than 30 minutes Exam Narrative: Ms. Levy is a well-nourished, well-appearing 61-year-old female who is lying supine in bed. She appears comfortable and is in NARD. Neuro: awake, alert and oriented x4, speech clear, no focal neuro deficits noted HEENMT: normocephalic, atraumatic, EOMI, sclerae anicteric, moist oral mucosa Neck: supple, no lymphadenopathy Respiratory: clear to auscultation bilaterally, nonlabored breathing Cardio: regular rate, regular rhythm with S1-S2 Abdomen: nondistended, normoactive bowel sounds, soft, nontender to palpation Extremities: no edema, erythema, or tenderness to palpation, DP pulses 2+ bilaterally Skin: no rashes or lesions, warm and dry Psych: appropriate mood
--- NOTE | 2021-08-10 09:58 | WPDANESPN ---
Anes - Prog Note Post-Op Date/Time: 08/10/21 09:58 Cardiovascular status: normal Respiratory status: normal Airway patency: baseline Mental status: baseline Post-Op hydration status: normal Vital Signs: Last Vital Signs Temp 36.4 C L 08/10/21 06:15 Pulse 75 08/10/21 06:15 Resp 14 08/10/21 06:15 BP 130/73 08/10/21 06:15 Pulse Ox 97 08/10/21 06:15 Pain Score (VAS): 0 I/O: Intake & Output 08/09/21 08/10/21 08/10/21 23:59 07:59 15:59 Intake Total 1480 500 240 Balance 1480 500 240 Laboratory Tests 08/10/21 05:14 08/10/21 05:14 08/10/21 08/10/21 05:14 05:14 WBC 10.6 H RBC 3.50 L Hgb 11.1 L Hct 33.5 L MCV 95.7 MCH 31.7 MCHC 33.1 RDW 12.7 Plt Count 201 MPV 10.1 Sodium 139 Potassium 3.8 Chloride 104 Carbon Dioxide 28 Anion Gap 7 L BUN 9 Creatinine 0.90 Estim Creat Clear Calc 66 Estimated GFR > 60 Glucose 117 H Calcium 8.7 Total Bilirubin 0.3 AST 27 ALT 23 Alkaline Phosphatase 46 Total Protein 6.0 L Albumin 3.5 Post-procedural complaints: none Patient Feedback: Patient satisfied with anesthetic care.
[2021-08-10 10:29] VITALS: BP 122/63; PULSE 79; RESP 16; TEMP 36.6; O2SAT 99
== END 2021-08-10 11:30 | disposition home or self-care (01) ==
LOC: ANHED 09:04 → ANHIMU 10:46 → ANH2MED 20:53
PROVIDERS: Emergency Medicine; Physician Assistant; Surgery; Admitting Provider Internal Medicine; Emergency Provider Emergency Medicine; PCP Family Medicine; Visit Provider Internal Medicine
PROC: 0FT44ZZ Resection of Gallbladder, Percutaneous Endoscopic Approach (ICD-10-PCS; CPT 47562; principal; 2021-08-09 13:30)
DX: K80.00 Calculus of gallbladder with acute cholecystitis without obstruction (principal); R10.13 Epigastric pain; R07.9 Chest pain, unspecified; Z85.3 Personal history of malignant neoplasm of breast; R03.0 Elevated blood-pressure reading, without diagnosis of hypertension; R07.89 Other chest pain; M85.80 Other specified disorders of bone density and structure, unspecified site; Z90.12 Acquired absence of left breast and nipple; Z90.710 Acquired absence of both cervix and uterus
CPT/HCPCS: 47562; 36415; 71046; 71275; 76705; 80048; 80053; 80061; 80076; 83690; 83735; 84443; 84484; 85025; 85027; 85380; 85610; 85730; 88304; 93005; 96361; 96374; 96375; 96376; 99285; A9270; C9113; G0378; G0379; J0690; J1170; J2060; J2250; J2270; J3010; J7030; J7120; Q9967

== ENCOUNTER 2021-11-05 00:45 | Day surgery (SDC) | payer MEDICAID, SELFPAY ==
[2021-10-23 14:40] VITALS: BMI 26.4
[2021-11-05 08:14] VITALS: BP 158/85; PULSE 98; RESP 18; TEMP 36.7; O2SAT 99; BMI 27.2
[2021-11-05] MEDS: LACTATED RINGERS 1,000 ML 150 ML IV CONT (08:35)
--- NOTE | 2021-11-05 08:41 | WPDANESEPPF ---
Anes - Initial Pre Proc Eval Procedure: Operation Date: 11/05/21 09:30 Proposed Procedures p Screening Colonoscopy - Carlos Dove MD Date/Time: 11/05/21 08:41 Surgeon: Carlos Dove MD Pre Op Diagnosis: neoplasm screening Patient Data Age: 61 Gender: F Height: 1.73 m Weight: 81.3 kg Last Vital Signs Temp 98.1 F 11/05/21 08:14 Pulse 98 11/05/21 08:14 Resp 18 11/05/21 08:14 BP 158/85 H 11/05/21 08:14 Pulse Ox 99 11/05/21 08:14 Allergies Allergy/AdvReac Type Severity Reaction Status Date / Time chlorhexidine Allergy Intermediate Rash Verified 11/05/21 08:13 [From Hibiclens] azithromycin Allergy Unknown Skin Verified 11/05/21 08:13 Reaction ciprofloxacin Allergy Unknown Rash Verified 11/05/21 08:13 clindamycin Allergy Unknown Rash Verified 11/05/21 08:13 codeine Allergy Unknown Skin Verified 11/05/21 08:13 Reaction penicillin G Allergy Unknown swelling Verified 11/05/21 08:13 Penicillins Allergy Unknown swelling- Verified 11/05/21 08:13 face-hands Sulfa (Sulfonamide Allergy Unknown Skin Verified 11/05/21 08:13 Antibiotics) Reaction sulfamethizole Allergy Unknown Skin Verified 11/05/21 08:13 Reaction sulfamethoxazole Allergy Unknown Rash Verified 11/05/21 08:13 [From Bactrim] sumatriptan Allergy Unknown Skin Verified 11/05/21 08:13 Reaction trimethoprim Allergy Unknown RASH Verified 11/05/21 08:13 vancomycin Allergy Unknown Skin Verified 11/05/21 08:13 Reaction VANCOMYCIN HCL Allergy Severe RASH AND Uncoded 11/05/21 08:13 RED FACE chlorhexidine Allergy Intermediate Rash Uncoded 11/05/21 08:13 Home Medications Medication Instructions Recorded Confirmed Type calcium carbonate 600 mg calcium 600 mg PO DAILY 10/26/19 11/05/21 History (1,500 mg) tablet cholecalciferol (vitamin D3) 50 mcg PO DAILY 08/08/21 11/05/21 History [Vitamin D3] Patient hx anesthesia problems: none Family hx anesthesia problems: none Results Review: All pre-operative results and documents have been reviewed as part of the pre-operative evaluation. PMFSH Past Medical History Medical History Cancer of left breast Status post left mastectomy Osteopenia Surgical History Surgical History History of hysterectomy (07/2018) Laparoscopic-assisted vaginal hysterectomy with bilateral salpingo-oophorectomy History of left mastectomy (04/2011) with implant Hx laparoscopic cholecystectomy 08/09/21 Status post LASIK surgery (2017) Family History Family History Sibling Diabetes mellitus Hypertension Father Gallbladder disease Other Asthma Social History Social History Social History: Surrogate decision maker: Quinn Levy, spouse. Code status: Full code. Smoking status: Never smoker Second hand tobacco smoke exposure: Yes Alcohol intake: never Substance use: never Substance use type: does not use Living arrangements: alone Additional living arrangements comments: The patient lives in [place] with her . 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 Gender identity (if verbalized by the patient): Female Sexual Orientation (if Verbalized by the Patient): Straight or Heterosexual Spiritual care concerns: No Agree to blood products: No Anes - Eval Final PreProcedure Day of Procedure 11/05/21 08:41 Patient weight: normal Heart: regular rate and rhythm Lungs: clear to auscultation Airway: Mallampati scale class II Neurological: alert and oriented Last oral intake: >/= 8 hours ASA classification: II Emergent: no Anesthetic plan: proceed Anesthesia type and monitoring: general GIVS and standard monito
--- NOTE | 2021-11-05 08:51 | PM.HPGS ---
History of Present Illness History of Present Illness Consent: Risks, benefits, and alternatives have been discussed and questions answered. Patient agrees to proceed with procedure. Chief complaint: neoplasm screening Narrative: Vianey Levy is a 61 year old female with last colonoscopy 10 years ago. Recently had occult blood in stool but nothing obvious. Review of Systems Constitutional: Constitutional: Denies headache(s) and Denies weakness Eyes: Eyes: Denies blurry vision ENT: Reports Normal hearing present, Denies headache(s) and Denies neck pain Cardiovascular: Cardiovascular: Denies chest pain and Denies dyspnea Respiratory: Respiratory: Denies dyspnea Gastrointestinal: Gastrointestinal: Reports no additional gastrointestinal complaints Genitourinary: Genitourinary: Denies dysuria Musculoskeletal: Musculoskeletal: Denies neck pain Integumentary/Breasts: Skin/Breast: Denies dry skin Neurologic: Reports Normal hearing present, Denies headache(s) and Denies weakness Psychiatric: Psychiatric: Denies anxiety Endocrine: Endocrine: Denies change in body appearance Hematologic/Lymphatic: Hematologic/Lymphatic: Denies easy bleeding Allergic/Immunologic: Allergic/Immunologic: Denies urticaria PMFSH Past Medical History Medical History Cancer of left breast Status post left mastectomy Osteopenia Surgical History Surgical History History of hysterectomy (07/2018) Laparoscopic-assisted vaginal hysterectomy with bilateral salpingo-oophorectomy History of left mastectomy (04/2011) with implant Hx laparoscopic cholecystectomy 08/09/21 Status post LASIK surgery (2017) Family History Family History Sibling Diabetes mellitus Hypertension Father Gallbladder disease Other Asthma Social History Social History Social History: Surrogate decision maker: Quinn Levy, spouse. Code status: Full code. Smoking status: Never smoker Second hand tobacco smoke exposure: Yes Alcohol intake: never Substance use: never Substance use type: does not use Living arrangements: alone Additional living arrangements comments: The patient lives in [place] with her . 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 Gender identity (if verbalized by the patient): Female Sexual Orientation (if Verbalized by the Patient): Straight or Heterosexual Spiritual care concerns: No Agree to blood products: No Meds Home Medications and Allergies Home Medications Medication Instructions Recorded Confirmed Type calcium carbonate 600 mg calcium 600 mg PO DAILY 10/26/19 11/05/21 History (1,500 mg) tablet cholecalciferol (vitamin D3) 50 mcg PO DAILY 08/08/21 11/05/21 History [Vitamin D3] Allergies Allergy/AdvReac Type Severity Reaction Status Date / Time chlorhexidine Allergy Intermediate Rash Verified 11/05/21 08:13 [From Hibiclens] azithromycin Allergy Unknown Skin Verified 11/05/21 08:13 Reaction ciprofloxacin Allergy Unknown Rash Verified 11/05/21 08:13 clindamycin Allergy Unknown Rash Verified 11/05/21 08:13 codeine Allergy Unknown Skin Verified 11/05/21 08:13 Reaction penicillin G Allergy Unknown swelling Verified 11/05/21 08:13 Penicillins Allergy Unknown swelling- Verified 11/05/21 08:13 face-hands Sulfa (Sulfonamide Allergy Unknown Skin Verified 11/05/21 08:13 Antibiotics) Reaction sulfamethizole Allergy Unknown Skin Verified 11/05/21 08:13 Reaction sulfamethoxazole Allergy Unknown Rash Verified 11/05/21 08:13 [From Bactrim] sumatriptan Allergy Unknown Skin Verified 11/05/21 08:13 Reaction trimethoprim Allergy Unknown RASH Verified 11/05/21 08:13 va
[2021-11-05 09:11] VITALS: BP 121/75; PULSE 83; RESP 17; O2SAT 100
[2021-11-05 09:21] VITALS: BP 138/87; PULSE 73; RESP 18; O2SAT 100
[2021-11-05 09:31] VITALS: BP 121/76; PULSE 76; RESP 17; O2SAT 98
== END 2021-11-05 09:40 | disposition home or self-care (01) ==
PROVIDERS: PCP Family Medicine; Visit Provider Internal Medicine Gastroenterology
PROC: 0DJD8ZZ Inspection of Lower Intestinal Tract, Via Natural or Artificial Opening Endoscopic (ICD-10-PCS; CPT 45378; principal; 2021-11-05 09:30)
DX: Z12.11 Encounter for screening for malignant neoplasm of colon (principal); K64.8 Other hemorrhoids; M19.90 Unspecified osteoarthritis, unspecified site; Z85.3 Personal history of malignant neoplasm of breast; Z90.13 Acquired absence of bilateral breasts and nipples; Z90.49 Acquired absence of other specified parts of digestive tract
CPT/HCPCS: 45378; J2704; J7120

== ENCOUNTER 2022-02-18 08:29 | Outpatient (CLI) | payer MEDICAID, SELFPAY ==
--- NOTE | ~2022-02-18 | MM_ITS ---
EXAMINATION: MM screening katrin RT w yobany HISTORY: Screening mammogram. History of left mastectomy for breast cancer and right reduction mammop lasty in 2010 TECHNIQUE: Craniocaudal and mediolateral oblique 3-D tomosynthesis images were obtained and synthetic 2-D images were generated. CAD analysis was submitted and interpreted. COMPARISON: 11/19/2020, 10/31/2019, 10/28/2018 right screening mammogram examinations BREAST PARENCHYMAL COMPOSITION: There are scattered areas of fibroglandular density. FINDINGS: No suspicious mass or interval architectural distortion or new asymmetry is evident compare d to prior examinations. Minimal benign calcification. No malignant calcification, skin thickening or retraction. IMPRESSION: 1. No mammographic evidence of malignancy. 2. Recommend routine screening mammography in one year. BI-RADS Category 2: Benign finding(s). Reviewed, dictated and finalized at location A.
== END 2022-02-18 08:30 | disposition home or self-care (01) ==
PROVIDERS: PCP Family Medicine; Visit Provider Family Medicine
DX: Z12.31 Encounter for screening mammogram for malignant neoplasm of breast (principal)
CPT/HCPCS: 77063; 77067

== ENCOUNTER 2022-05-29 08:25 | Outpatient (CLI) | payer MEDICAID, SELFPAY ==
--- NOTE | ~2022-05-29 | US_ITS ---
EXAMINATION: US right upper quadrant DATE: 05/29/2022 09:17 INDICATION: Abnormal levels of other serum enzymes TECHNIQUE: Multiple grayscale and Doppler ultrasound images of the abdomen were obtained. COMPARISON: 08/08/2021 FINDINGS: The head and body of the pancreas are normal. The pancreatic tail is obscured by bowel gas. Cysts of the liver measure up to 6.1 cm. The liver demonstrates increased echogenicity, heterogenous echotexture, and decreased through transmission. No surface nodularity. Normal hepatopetal flow in t he main portal vein. The gallbladder is surgically absent. The normal common bile duct measures 5 mm. IMPRESSION: 1. Diffuse hepatic steatosis. Reviewed, dictated and finalized at location A.
== END 2022-05-29 08:26 | disposition home or self-care (01) ==
PROVIDERS: PCP Family Medicine; Visit Provider Family Medicine
DX: R74.8 Abnormal levels of other serum enzymes (principal); K76.0 Fatty (change of) liver, not elsewhere classified; K76.89 Other specified diseases of liver; Z80.0 Family history of malignant neoplasm of digestive organs
CPT/HCPCS: 76705

== ENCOUNTER → 2022-10-10 08:04 | Outpatient (CLI) | payer MEDICAID, SELFPAY ==
--- NOTE | ~2022-10-10 | XR_ITS ---
EXAMINATION: XR knee RT min 4V DATE: 10/10/2022 08:19 INDICATION: Right knee pain TECHNIQUE: Four views of the right knee were obtained. COMPARISON: None. FINDINGS: Alignment is normal. No fracture or osteochondral lesion. There is mild tricompartmental os teoarthritis characterized by tiny marginal osteophytes. There is a small knee joint effusion. Soft t issues are unremarkable. IMPRESSION: 1. Mild osteoarthritis and small joint effusion without acute osseous abnormality. Reviewed, dictated and finalized at location B. 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 Mild osteoarthritis and small joint effusion without acute osseous abnormali ty.
== END ==
PROVIDERS: PCP Family Medicine; Visit Provider Family Medicine
DX: M17.11 Unilateral primary osteoarthritis, right knee (principal); M25.461 Effusion, right knee
CPT/HCPCS: 73564

== ENCOUNTER 2023-02-25 15:17 | Outpatient (CLI) | payer MEDICAID, SELFPAY ==
--- NOTE | ~2023-02-25 | US_ITS ---
EXAMINATION: US carotid duplex BI DATE: 02/25/2023 16:08 INDICATION: Dizziness and giddiness. TECHNIQUE: Grayscale, color Doppler, and pulsed Doppler images of the cervical carotid arteries were obtained. The degree of vessel stenosis is placed in one of the following categories: normal, <50%, 5 0-69%, >=70% but less than near-occlusion, near-occlusion, or total occlusion. Note that percent sten osis relative to normal distal artery lumen diameter is indirectly measured from velocity measurement s as described by Christo, et al. Radiology 2003; 229:340-346. COMPARISON: None. FINDINGS: RIGHT: The right common carotid artery (CCA) peak systolic velocity (PSV) is 81 cm/s. The right internal car otid artery (ICA) PSV is 79 cm/s. The right ICA end-diastolic velocity (EDV) is 32 cm/s. The right IC A/CCA PSV ratio is 1.0. Grayscale and color Doppler images demonstrate no evident stenosis or plaque in the ICA. The external carotid artery (ECA) PSV is 72 cm/s. There is antegrade flow in the right ve rtebral artery. LEFT: The left CCA PSV is 82 cm/s. The left ICA PSV is 99 cm/s. The left ICA EDV is 35 cm/s. The left ICA/C CA PSV ratio is 1.2. Grayscale and color Doppler images demonstrate no evident stenosis or plaque in the ICA. The ECA PSV is 70 cm/s. There is antegrade flow in the left vertebral artery. IMPRESSION: 1. No evident plaque or stenosis in the right internal carotid artery. 2. No evident plaque or stenosis in the left internal carotid artery. Reviewed, dictated and finalized at location B.
== END 2023-02-25 15:18 | disposition home or self-care (01) ==
PROVIDERS: PCP Family Medicine; Visit Provider Family Medicine
DX: R42 Dizziness and giddiness (principal); E78.5 Hyperlipidemia, unspecified
CPT/HCPCS: 93880

== ENCOUNTER 2023-06-16 10:56 | Outpatient (CLI) | payer MEDICAID, SELFPAY ==
--- NOTE | ~2023-06-16 | US_ITS ---
EXAMINATION: US soft tissue head and neck DATE: 06/16/2023 11:27 INDICATION: Localized swelling, mass and lump at the right side of the head TECHNIQUE: Multiple grayscale and Doppler ultrasound images of the right posterior side of the head w ere obtained. COMPARISON: None FINDINGS: 1.1 cm hypoechoic mass with smooth well-defined margins with a few punctate and small linear internal echogenic foci at the region of concern. Subtle tiny hypoechoic tract extending towards the skin doris face. No internal vascular flow on color Doppler or surrounding hyperemia. IMPRESSION: 1. 1.1 cm scalp nodule at the region of concern from imaging features of which while nonspecific are most suggestive of a trichilemmal cyst. Reviewed, dictated and finalized at location A.
== END 2023-06-16 10:57 | disposition home or self-care (01) ==
PROVIDERS: PCP Family Medicine; Visit Provider Family Medicine
DX: R22.0 Localized swelling, mass and lump, head (principal)
CPT/HCPCS: 76536

== ENCOUNTER 2023-08-07 12:32 | Outpatient (CLI) | payer MEDICAID, SELFPAY ==
--- NOTE | ~2023-08-07 | MM_ITS ---
EXAMINATION: MM screening katrin RT w yobany HISTORY: Screening TECHNIQUE: Craniocaudal and mediolateral oblique 3-D tomosynthesis images were obtained and synthetic 2-D images were generated. CAD analysis was submitted and interpreted. COMPARISON: Comparison to multiple prior studies sequentially, with oldest reviewed study dated 04/27. BREAST PARENCHYMAL COMPOSITION: The breasts are heterogeneously dense, which may obscure small masses . FINDINGS: There is no evidence of suspicious mass, calcification, or architectural distortion to sugg est malignancy in the right breast. There has been no suspicious interval change. IMPRESSION: 1. No mammographic evidence of malignancy. 2. Recommend routine screening mammography in one year. BI-RADS Category 1: Negative Reviewed, dictated and finalized at location A. ECTING AND TESTING LEAD HAND
== END 2023-08-07 12:33 | disposition home or self-care (01) ==
PROVIDERS: PCP Family Medicine; Referring Provider Obstetrics & Gynecology; Visit Provider Family Medicine
DX: Z12.31 Encounter for screening mammogram for malignant neoplasm of breast (principal)
CPT/HCPCS: 77063; 77067

== ENCOUNTER 2024-10-27 15:49 | Outpatient (CLI) | payer OTHER, SELFPAY ==
--- NOTE | ~2024-10-27 | MM_ITS ---
EXAMINATION: MM screening katrin RT w yobany HISTORY: Screening TECHNIQUE: Craniocaudal and mediolateral oblique 3-D tomosynthesis images were obtained and synthetic 2-D images were generated. CAD analysis was submitted and interpreted. COMPARISON: Comparison to multiple prior studies sequentially, with oldest reviewed study dated 11/19. BREAST PARENCHYMAL COMPOSITION: Not dense: There are scattered areas of fibroglandular density. FINDINGS: There is no evidence of suspicious mass, calcification, or architectural distortion to sugg est malignancy in the right breast. There has been no suspicious interval change. IMPRESSION: 1. No mammographic evidence of malignancy. 2. Recommend routine screening mammography in one year. BI-RADS Category 1: Negative Reviewed, dictated and finalized at location A. 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
--- OUTSIDE RECORDS SUMMARY | 2024-10-27 15:51 | XMS_ITS | Referral Summary ---
Author Organization [facility] Address [address] [place] [address] Care Team Providers Care Control Room Supervisor Name Role Phone Andrea Mac MD Primary Care Provider Allergies Active Allergy Reactions Criticality Noted Date Comments Azithromycin Unknown 11/18/2018 Sulfamethoxazole-Trimethoprim Itching Low 2010 Ciprofloxacin Itching Low 08/05/2011 Clindamycin Itching Low 08/05/2011 Codeine Rash Medium 12/17/2018 Penicillins Rash Medium 08/05/2011 Vancomycin Itching Low 08/05/2011 Medications cholecalciferol (VITAMIN D-3) 2,000 unit tablet 4,000 Units daily Takes 2000iu daily Active calcium carbonate (OS-CHRISTELLE) 1,500 mg (600 mg of elemental calcium) tablet Take by mouth daily Active omega 4-fcu-ljn-fish oil 1,000 mg (120 mg-180 mg) capsule 2 tabs daily 1280 mcg Active alendronate (FOSAMAX) 70 mg tablet Take 1 tablet (70 mg total) by mouth every 7 days Take in the morning with a full glass of water, on an empty stomach, and do not take anything else by mouth or lie down for the next 30 min. 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 Gender Identity Not on file Sexual Orientation Not on file Last Filed Vital Signs Vital Sign Reading Time Taken Comments Blood Pressure 156/83 07/05/2021 9:14 AM CDT Pulse 76 07/05/2021 9:14 AM CDT Temperature 36.3 ??C (97.3 ??F) 07/05/2021 9:14 AM CD T Respiratory Rate 18 07/05/2021 9:14 AM CDT Oxygen Saturation 100% 07/05/2021 9:14 AM CDT Inhaled Oxygen Concentration - - Weight 79.8 kg (176 lb) 07/22/2021 2:58 PM CDT Height 172.7 cm (5' 8 ) 07/22/2021 2:58 PM CDT Body Mass Index 26.76 07/22/2021 2:58 PM CDT Plan of Treatment Not on file Insurance [employer] Care Teams Control Room Supervisor Relationship Specialty Start Date End Date Andrea Mac MD [address] [place] [address] PCP - General Family Medicine 09/03/18
--- OUTSIDE RECORDS SUMMARY | 2024-10-27 15:51 | XMS_ITS | Encounter Summary ---
Author Organization [facility] Address [address] [place] [address] Phone Care Team Providers Care Media Traffic Manager Name Role Phone Andrea Mac MD Primary Care Provider [phone] Encounter Details Date Type Department Care Team (Latest Contact Info) Description 11/19/2020 Orders Only [facility] Scanning, Provider Social History Tobacco Use Types Packs/Day Years Used Date Smoking Tobacco: Never Smokeless Tobacco: Never Comments Unknown Sex and Gender Information Value Date Recorded Sex Assigned at Not on file Legal Sex Female 12:38 PM R D INTERNSHIP Gender Identity Not on file Sexual Orientation Not on file documented as of this encounter Plan of Treatment Not on file documented as of this encounter Procedures Procedure Name Priority Date/Time Associated Diagnosis Comments SCAN - RADIOLOGY/IMAGING 11/19/2020 documented in this encounter Results * SCAN - RADIOLOGY/IMAGING (11/19/2020) Anatomical Region Laterality Modality Other us Provider Scanning Final Result documented in this encounter Visit Diagnoses Not on filedocumented in this encounter Care Teams Media Traffic Manager Relationship Specialty Start Date End Date Andrea Mac MD [address] [place] [address] PCP - General Family Medicine 09/03/18 documented as of this encounter
--- OUTSIDE RECORDS SUMMARY | 2024-10-27 15:51 | XMS_ITS | Clinical Summary ---
Author Organization [facility] Address [address] [place] [address] Care Team Providers Care Community Aide Name Role Phone Andrea Mac MD Primary Care Provider [phone] Allergies Active Allergy Reactions Criticality Noted Date [...] tablet Take by mouth daily Active omega 9-hgh-bqw-fish oil 1,000 mg (120 mg-180 mg) capsule [...] reast in female, estrogen receptor positive 09/03/2018 Family History Medical History Relation Name Comments Lung cancer Father Cancer Paternal Grandfather Cancer Paternal Grandmother Relation Name Status Comments Father Paternal Grandfather Paternal Grandmother Social History Tobacco Use Types Packs/Day Years Used Date Smoking Tobacco: Never Smokeless Tobacco: Never Personal Safety Answer Date Recorded Getting School Help Needed Not on file 09/08 Comments Unknown Sex and Gender Information Value Date Recorded Sex Assigned at Not on file 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 Gender Identity Not on file Sexual Orientation Not on file Obstetrics History Last Filed Vital Signs Vital Sign Reading [...] 07/22/2021 2:58 PM CDT Plan of Treatment Health Maintenance Due Date Last Done Comments Breast Cancer Screening-Mammogram 1961 Cervical Cancer Screening 1961 Colon Cancer Screening-Colonoscopy 1961 Depression Screening 1961 Hepatitis C Screening 1961 DTaP/Tdap/Td Vaccine (1 - Tdap) 1972 Hepatitis B Screening 1979 Regular Well Visit/Exam 18-64 1979 Zoster Vaccine (1 of 2) 2011 Covid-19 Vaccine (2 - 2023-2 5 season) 2024 07/13/2021 Influenza Vaccine (#1) 2024 Pneumococcal vaccine <65 Aged Out No longer eligible based on patient's age to complete this topic Insurance IDPA IDPA Care Teams Community Aide Relationship Specialty Start Date End Date Andrea Mac MD [address] [place] [address] PCP - General Family Medicine 09/03/18
--- OUTSIDE RECORDS SUMMARY | 2024-10-27 15:51 | XMS_ITS | Clinical Summary ---
Author Organization [facility] Address [address] [place] [address] Care Team Providers Care Electrification Adviser Name Role Phone Andrea Mac MD Primary Care Provider [phone] Allergies Active Allergy Reactions Criticality Noted Date Comments Azithromycin Unknown 11/18/2018 Ciprofloxacin Itching Low 08/05/2011 Clindamycin Itching Low 08/05/2011 Penicillins Rash Medium 08/05/2011 Sulfamethoxazole-Trimethoprim Itching Low 2010 Vancomycin Itching Low 08/05/2011 Medications cholecalciferol, Vitamin D3, 2,000 unit Tablet 4,000 Units daily . Active calcium carbonate (CALCIUM 600 ORAL) Take by mouth daily. 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 current use of dara ective estrogen receptor modulators (SERMs) 11/18/2018 Aromatase inhibitor use 11/18/2018 Absence of left breast 11/18/2018 Family History Medical History Relation Name Comments Cancer Father skin Lung Cancer Father Lung Cancer Paternal Grandfather Relation Name Status Comments Father (Age 87) Paternal Grandfather Social History Tobacco Use Types Packs/Day Years Used Date Smoking Tobacco: Never Smokeless Tobacco: Never Alcohol Use Standard Drinks/Week Comments No 0 (1 standard drink = 0.6 oz pur e alcohol) Comments No Sex and Gender Information Value Date Recorded Sex Assigned at Not on file Legal Sex Female 12:11 PM SHIP'S SURVEYOR Gender Identity Not on file Sexual Orientation Not on file Last Filed Vital Signs Vital Sign Reading Time Taken Comments Blood Pressure 124/86 11/18/2018 9:23 AM SHIP'S SURVEYOR Pulse 88 11/18/2018 9:23 AM SHIP'S SURVEYOR Temperature 36.8 ??C (98.3 ??F) 11/18/2018 9:23 AM CS T Respiratory Rate - - Oxygen Saturation 98% 11/18/2018 9:23 AM SHIP'S SURVEYOR Inhaled Oxygen Concentration - - Weight 79.7 kg (175 lb 12.8 oz) 11/18/2018 9:23 AM SHIP'S SURVEYOR Height 170.2 cm (5' 7 ) 11/18/2018 9:23 AM SHIP'S SURVEYOR Body Mass Index 27.53 11/18/2018 9:23 AM SHIP'S SURVEYOR Plan of Treatment Health Maintenance Due Date Last Done Comments DTAP/TDAP/TD VACCINES (1 - Tdap) 1980 CERVICAL CANCER SCREENING 1991 COLORECTAL SCREENING 2006 Colorectal Cancer Screening 2006 FIT-DNA Q 3 years 2006 FIT/FOBT Q 1 year 2006 Flex Sig/CT Colonography Q 5 years 2006 ZOSTER VACCINE (1 of 2) 2011 BREAST CANCER SCREENING 05/12/2017 05/12/20 16, 04/27/2015, 04/04/2014 INFLUENZA VACCINE (#1) 2024 RSV VACCINE (60+ or ) (1 - 1-dose 75+ series) 2036 PNEUMOCOCCAL VACCINE 0-64 YEARS Aged Out No longer eligible b ased on patient's age to complete this topic Procedures Procedure Name Priority Date/Time Associated Diagnosis Comments MAMMO SCRN TO DIAG UNI RIGHT Routine 05/12/2016 from Last 3 Months or Most Recently Relevant to Health Maintenance Results * MAMMO SCRN TO DIAG UNI RIGHT (05/12/2016) Anatomical Region Laterality Modality Breast Other us Abstract Provider MAMMO ORDERABLES Final Result from Last 3 Months or Most Recently Relevant to Health Maintenance Care Teams Electrification Adviser Relationship Specialty Start Date End Date Andrea Mac MD [address] [place] [address] PCP - General Family Practice 11/18/18
--- OUTSIDE RECORDS SUMMARY | 2024-10-27 15:51 | XMS_ITS | Encounter Summary ---
Author Organization [facility] Address [address] [place] [address] Phone Care Team Providers Care Search Engine Optimization Specialist Name Role Phone Andrea Mac MD Primary Care Provider [phone] Encounter Details Date Type Department Care Team (Latest Contact Info) Description 10/31/2019 Orders Only [facility] Scanning, Provider Social History Tobacco Use Types Packs/Day Years Used Date Smoking Tobacco: Never Smokeless Tobacco: Never Comments Unknown Sex and Gender Information Value Date Recorded Sex Assigned at Not on file Legal Sex Female 12:38 PM 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 [place]AMP[place]NE Gender Identity Not on file Sexual Orientation Not on file documented as of this encounter Plan of Treatment Not on file documented as of this encounter Procedures Procedure Name Priority Date/Time Associated Diagnosis Comments SCAN - RADIOLOGY/IMAGING 10/31/2019 documented in this encounter Results * SCAN - RADIOLOGY/IMAGING (10/31/2019) Anatomical Region Laterality Modality Other us Provider Scanning Final Result documented in this encounter Visit Diagnoses Not on filedocumented in this encounter Care Teams Search Engine Optimization Specialist Relationship Specialty Start Date End Date Andrea Mac MD [address] [place] [place] [address] PCP - General Family Medicine 09/03/18 documented as of this encounter
--- OUTSIDE RECORDS SUMMARY | 2024-10-27 15:51 | XMS_ITS | Encounter Summary ---
Author Organization [facility] Address [address] [place] [address] Phone Care Team Providers Care District Wildlife Manager Name Role Phone Andrea Mac MD Primary Care Provider [phone] Encounter Details Date Type Department Care Team (Latest Contact Info) Description 07/01/2019 Orders Only [facility] Scanning, Provider Social History Tobacco Use Types Packs/Day Years Used Date Smoking Tobacco: Never Smokeless Tobacco: Never Comments Unknown Sex and Gender Information Value Date Recorded Sex Assigned at Not on file Legal Sex Female 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 Gender Identity Not on file Sexual Orientation Not on file documented as of this encounter Plan of Treatment Not on file documented as of this encounter Procedures Procedure Name Priority Date/Time Associated Diagnosis Comments SCAN - LABS 07/01/2019 documented in this encounter Results * SCAN - LABS (07/01/2019) us Provider Scanning Edited Result - Final documented in this encounter Visit Diagnoses Not on filedocumented in this encounter Care Teams District Wildlife Manager Relationship Specialty Start Date End Date Andrea Mac MD [address] [place] [address] PCP - General Family Medicine 09/03/18 documented as of this encounter
--- OUTSIDE RECORDS SUMMARY | 2024-10-27 15:52 | XMS_ITS | Clinical Summary ---
Author Organization [facility] Address [address] [place] [address]. [place], [place] [id number] [place] [id number] Care Team Providers Care Product Planner Name Role Phone Savanna De DO Primary Care Provider [phone] Encounters Date Type Department Care Team Description 09/01/2024 9:50 AM MANUFACTURING SOFTWARE ENGINEER Laboratory Only [facility] [address] [place] [address] Anders Trivedi MD 09/01/2024 9:48 AM MANUFACTURING SOFTWARE ENGINEER - 09/01/2024 11:59 PM MANUFACTURING SOFTWARE ENGINEER Hospital Encounter [facility] [address] [place] [address] Savanna De DO Discharge Disposition: Home or Self Care (Routine Discharge) 09/01/2024 Orders Only [facility] [address] [place] [address] Savanna De DO 09/01/2024 Travel from Last 3 Months Social History Tobacco Use Types Packs/Day Years Used Date Smoking Tobacco: Never Assessed Comments Unknown Sex and Gender Information Value Date Recorded Sex Assigned at Not on file Legal Sex Female 5:32 PM CDT Gender Identity Not on file Sexual Orientation Not on file Plan of Treatment Health Maintenance Due Date Last Done Comments Cervical Cancer Screening Pa p Smear (Age 30 to 64) Every 3 Years 1961 Colorectal Cancer Screening Colonoscopy (10 Years) 1961 Annual Physical 1964 Hepatitis C 1979 Cervical Cancer Screening Pa p with HPV Testing (Age 30 to 64) Every 5 Years 1991 Cervical Cancer Screening wi th HPV 1991 Mammogram Screening 2001 Zoster Vaccines (1 of 2) 2011 COVID-19 Vaccine (3 - 2023-2 5 season) 2024 08/28/2021, 07/13/2021 Influenza Adult (#1) 2024 DTaP, Tdap and Td Vaccines ( 2 - Td or Tdap) 09/24/2031 09/24/2021 RSV Immunization or 60+ Years (1 - 1-dose 75+ series) 2036 Meningococcal B Vaccine Aged Out No l onger eligible based on patient's age to complete this topic Meningococcal Vaccine Aged Out No thelma natalie eligible based on patient's age to complete this topic Pneumococcal Vaccine: Pediatrics (0 to 5 Years) and At-Risk Patients (6 to 64 Years) Aged Out No longer eligible b ased on patient's age to complete this topic RSV Immunizations Under 20 Months Aged Out No longer eligible b ased on patient's age to complete this topic Procedures Procedure Name Priority Date/Time Associated Diagnosis Comments COMPREHENSIVE METABOLIC PANEL Routine 09/01/2024 10:06 AM MANUFACTURING SOFTWARE ENGINEER Encounter for long-term (current) drug use Hyperlipidemia Abnormal levels of other serum enzymes Anemia, unspecified CBC, AUTO, NO DIFF Routine 09/01/2024 10 :06 AM MANUFACTURING SOFTWARE ENGINEER Encounter for long-term (current) drug use Hyperlipidemia Abnormal levels of other serum enzymes Anemia, unspecified VITAMIN D, 25 OH Routine 09/01/2024 9:56 AM MANUFACTURING SOFTWARE ENGINEER THYROID STIM HORMONE TSH Routine 09/01/2024 9:56 AM MANUFACTURING SOFTWARE ENGINEER LIPID PANEL Routine 09/01/2024 9:56 AM MANUFACTURING SOFTWARE ENGINEER HEMOGLOBIN, GLYCOSYLATED Routine 09/01/2024 9:56 AM MANUFACTURING SOFTWARE ENGINEER from Last 3 Months Results * (ABNORMAL) COMPREHENSIVE METABOLIC PANEL (09/01/2024 10:06 AM MANUFACTURING SOFTWARE ENGINEER) GLUCOSE 99 70 - 99 MG/DL 09/01/2024 10:54 AM [facility] BUN 16 7 - 18 MG/DL 09/01/2024 10:54 AM [facility] CREATININE S/P/B 1.16(H) 0.55 - 1.02 MG/DL 09/01/2024 10:54 AM [facility] SODIUM S/P/B 142 136 - 145 MMOL/L 09/01/2024 10:54 AM [facility] POTASSIUM S/P/B 3.6 3.5 - 5.1 MMOL/L 09/01/2024 10:54 AM [facility] CHLORIDE S/P/B 104 100 - 108 MMOL/L 09/01/2024 10:54 AM [facility] CO2 26.7 21 - 32 MMOL/L 09/01/2024 10:54 AM [facility] CALCIUM S/P/B 9.7 8.5 - 10.1 MG/DL 09/01/2024 10:54 AM [facility] BILIRUBIN TOTAL S/P/B 0.4 0.2 - 1.2 MG/DL 09/01/2024 10:54 AM [facility] TOTAL PROTEIN S/P/B 7.8 6.4 - 8.2 G/DL 09/01/2024 10:54 AM [facility] ALBUMIN S/P/B 3.7 3.4 - 5.0 G/DL 09/01/2024 10:54 AM [facility] AST 23 15 - 37 U/L 09/01/2024 10:54 AM [facility] ALT 36 14 - 55 U/L 09/01/2024 10:54 AM [facility] ALKALINE PHOSPHATASE S/P/B 74 50 - 136 U/L 09/01/2024 10:54 AM [facility] ANION GAP 11.3 5 - 15 MMOL/L 09/01/2024 10:54 AM [facility] BUN CREATININE RATIO 13.8 6 - 26 09/01/2024 10:54 AM [facility] A/G RATIO 0.9(L) 1.0 - 2.0 RATIO 09/01/2024 10:54 AM [facility] GFR ESTIMATE 53(L) >90 ML/MIN/1.7 3 M2 09/01/2024 10:54 AM [facility] Comment: NOTE: eGFR is not calculated for patients <18 years of age. This is an estimated GFR calculation using the new CKD EPI creatinine equation without race and so does not require a correction factor for race. This estimated GFR should not be used for calculating drug doses. 09/01/2024 10:0 6 AM [facility] us Savanna De DO LABORATORY Final Result [facility] [address] [place] [address], * CBC, AUTO, NO DIFF (09/01/2024 10:06 AM [facility]) WBC 7.48 4.4 - 11.0 x10'3/uL 09/01/2024 10:31 AM [facility] RBC 4.57 4.50 - 5.10 x10'6/uL 09/01/2024 10:31 AM [facility] HGB 14.0 12.3 - 15.3 G/DL 09/01/2024 10:31 AM [facility] HCT 42.1 35.9 - 44.6 % 09/01/2024 10:31 AM [facility] MCV 92.1 80.0 - 96.0 FL 09/01/2024 10:31 AM [facility] MCH 30.6 25.3 - 30.9 PG 09/01/2024 10:31 AM [facility] MCHC 33.3 31.0 - 34.1 G/DL 09/01/2024 10:31 AM [facility] RDW 13.0 12.4 - 15.1 % 09/01/2024 10:31 AM [facility] PLT 278 151 - 353 x10'3/uL 09/01/2024 10:31 AM [facility] MPV 9.8 9.6 - 12.0 FL 09/01/2024 10:31 AM [facility] 09/01/2024 10:0 6 AM MANUFACTURING SOFTWARE ENGINEER us Savanna De DO LABORATORY Final Result [facility] [address] [place] [address], * (ABNORMAL) HEMOGLOBIN, GLYCOSYLATED (09/01/2024 9:56 AM MANUFACTURING SOFTWARE ENGINEER) HGB A1C 5.9(H) <5.7 % 09/01/2024 4:09 PM [facility] Comment: INCREASED RISK OF DIABETES <5.7% ?NON-DIABETES 5.7-6.4% INCREASED RISK FOR FUTURE DIABETES > OR = 6.5 CONSISTENT WITH DIABETES STANDARDS OF MEDICAL CARE IN DIABETES-2010 DIABETES CARE, 33(SUPP 1): S1-S61,2009 ESTIMATED AVG GLUCOSE 123 mg/dL 09/01/2024 4:09 PM [facility] 09/01/2024 9:56 AM MANUFACTURING SOFTWARE ENGINEER Anders Trivedi MD LABORATORY Final Result [facility] [address] [place] [address], * (ABNORMAL) LIPID PANEL (09/01/2024 9:56 AM MANUFACTURING SOFTWARE ENGINEER) CHOLESTEROL 261(H) <200.0 MG/DL 09/01/2024 11:02 AM [facility] TRIGLYCERIDES 242(H) <150 MG/DL 09/01/2024 11:02 AM [facility] HDL 55 >40.0 MG/DL 09/01/2024 11:02 AM [facility] LDL (CALCULATED) 158(H) <100 MG/DL 09/01/2024 11:02 AM [facility] NON HDL CHOLESTEROL 206(H) <130 MG/DL 09/01/2024 11:02 AM [facility] CHOL/HDL RATIO 4.7(H) 0.0 - 4.5 09/01/2024 11:02 AM [facility] VLDL CALCULATION 48 5 - 55 MG/DL 09/01/2024 11:02 AM [facility] LIPID INTERPRETATION 09/01/2024 11:02 AM [facility] Comment: [facility] REPORT RECOMMENDATIONS: ?ADULT ?CHILD ??LOW RISK: ?CHOLESTEROL ? <200 ? <170 ?TRIGLYCERIDE ?<150 ?--- ?HDL ? >=60 ?--- ?LDL ? <100 ? <110 ??BORDERLINE: ?CHOLESTEROL ? 200-239 ?? 170-199 ?TRIGLYCERIDE ?150-199 ? --- ?HDL ?40-59 ?--- ?LDL ? 100-159 ?? 110-129 ??HIGH RISK: ?CHOLESTEROL ? >=240 ?>=200 ?TRIGLYCERIDE ?>=200 ? --- ?HDL ?<40 ?--- ?LDL ? >=160 ?>=130 09/01/2024 9:56 AM MANUFACTURING SOFTWARE ENGINEER Anders Trivedi MD LABORATORY Final Result Performing Organization Address [facility] Phone Number [facility] [address] [place] [address], * THYROID STIM HORMONE TSH (09/01/2024 9:56 AM MANUFACTURING SOFTWARE ENGINEER) TSH 3.440 0.358 - 3.74 uIU/ML 09/01/2024 11:02 AM MANUFACTURING SOFTWARE ENGINEER [facility] Comment: HIGH DOSES OF BIOTIN MAY INTERFERE WITH THIS TEST RESULT. CORRELATION TO CLINICAL HISTORY AND PRESENTATION RECOMMENDED. 09/01/2024 9:56 AM MANUFACTURING SOFTWARE ENGINEER Anders Trivedi MD LABORATORY Final Result Performing Organization Address [facility] de Phone Number [facility] [address] [place] [address], [place] [phone] * VITAMIN D, 25 OH (09/01/2024 9:56 AM MANUFACTURING SOFTWARE ENGINEER) VITAMIN D 25 HYDROXY S/P/B 65 30 - 100 NG/ML 09/01/2024 11:15 AM MANUFACTURING SOFTWARE ENGINEER [facility] Comment: ? INTERPRETATION ? DEFICIENT ??<20 ? INSUFFICIENT 20-29 ?SUFFICIENT 30-100 09/01/2024 9:56 AM MANUFACTURING SOFTWARE ENGINEER Anders Trivedi MD LABORATORY Final Result Performing Organization Address [facility] de Phone Number [facility] [address] [place] [address], [place] [phone] from Last 3 Months Care Teams Product Planner Relationship Specialty Start Date End Date Savanna De DO [address] [place] [address] PCP - General FAMILY PRACTICE 11/26/23
== END 2024-10-27 15:50 | disposition home or self-care (01) ==
PROVIDERS: PCP Family Medicine; Visit Provider Obstetrics & Gynecology
DX: Z12.31 Encounter for screening mammogram for malignant neoplasm of breast (principal)
CPT/HCPCS: 77063; 77067